=== PATIENT | female | born 1960 | race Caucasian/White ===

== ENCOUNTER 2017-01-11 00:46 | Observation (INO) | payer OTHER ==
[2017-01-11 11:21] LABS: RED BLOOD COUNT 4.27 M/UL (4.00-5.10); WHITE BLOOD COUNT 11.9 K/UL (4.5-11.0)
[2017-01-11 11:42] LABS: BUN/CREATININE RATIO 17 (0-10)
[2017-01-11] MEDS ORDERED: VENTOLIN HFA 66.7 GM INH (12:39)
[2017-01-11] MEDS ORDERED: KEPPRA1000 MG PO (12:40)
[2017-01-11] MEDS ORDERED: CITALOPRAM HBR20 MG PO (12:40)
[2017-01-11] MEDS ORDERED: NEURONTIN 400400 MG PO (12:40)
[2017-01-11] MEDS ORDERED: SEROQUEL TAB 2525 MG PO (12:41)
[2017-01-11] MEDS ORDERED: ZOFRAN ODT 4 MG4 MG PO (12:42)
[2017-01-11] MEDS ORDERED: ATIVAN1 MG PO (12:42)
[2017-01-11] MEDS ORDERED: MOBIC7.5 MG PO (12:43)
[2017-01-11] MEDS ORDERED: ZANTAC 150 MG150 MG PO (12:43)
[2017-01-11] MEDS ORDERED: SYMBICORT 16010.2 GM INH (12:44)
[2017-01-11] MEDS ORDERED: VIMPAT50 MG PO (12:45)
[2017-01-11] MEDS ORDERED: TYLENOL 325MG325 MG PO (13:17)
== END 2017-01-11 21:45 | disposition home or self-care (01) ==
LOC: M/S 01:39
PROVIDERS: Physician Assistant; ADMIT Internal Medicine
DX: R56.9 Unspecified convulsions (principal); G89.29 Other chronic pain; M54.5 Low back pain; D72.829 Elevated white blood cell count, unspecified; D64.9 Anemia, unspecified; F32.9 Major depressive disorder, single episode, unspecified; F41.9 Anxiety disorder, unspecified; F17.210 Nicotine dependence, cigarettes, uncomplicated; Z79.891 Long term (current) use of opiate analgesic; Z79.899 Other long term (current) drug therapy; Z90.49 Acquired absence of other specified parts of digestive tract; Z98.890 Other specified postprocedural states
CPT/HCPCS: 36415; 70551; 80048; 82550; 82553; 84484; 85027; 92610; 93005; 94664; 95819; 96374; G0378; G0379; J2405